=== PATIENT | female | born 1965 | race Caucasian/White ===

== ENCOUNTER 2017-04-23 16:34 | Emergency (ER) | payer OTHER ==
[~2017-04-23] VITALS: Ht 154.9 cm; Wt 71.7 kg
[~2017-04-23 16:34] MED LIST: LISNOPRIL; SERT20CO7
[2017-04-23] MEDS ORDERED: cloNIDine HCL 0.1 MG TAB PO ONE (17:15)
[2017-04-23 17:50] LABS: Basophils # (auto) 0.1 uL; Basophils % (auto) 1.4 % (0.0-2.0); Eosinophils # (auto) 0.2 uL; Eosinophils % (auto) 2.1 % (0.0-7.0); Hematocrit 40.7 % (36.0-46.0); Hemoglobin 13.6 g/dL (12.2-16.2); Lymphocytes # (auto) 3.9 uL; Lymphocytes % (auto) 41.4 % (10.0-50.0); Mean Corpuscular Hemoglobin 28.8 pg (28.0-32.0); Mean Corpuscular Hgb Conc. 33.4 g/dL (32.0-36.0); Mean Corpuscular Volume 86.4 fL (80.0-100.0); Monocytes # (auto) 0.6 uL; Monocytes % (auto) 6.5 % (0.0-12.0); Neutrophils # (auto) 4.6 uL; Neutrophils % (auto) 48.6 % (37.0-80.0); Nucleated Red Blood Cells % 0.3 %; Platelet Count (auto) 268 10^3/uL (140-450); Red Blood Cells 4.71 10^6/uL (4.0-5.20); Red Cell Distribution Width 14.3 % (11.8-14.3); White Blood Cell 9.4 10^3/uL (4.4-10.8)
[2017-04-23 17:57] LABS: Alanine Aminotransferase 69 U/L (13-56); Albumin 3.8 g/dL (3.4-5.0); Anion Gap 8 (5-15); Blood Urea Nitrogen 10 mg/dL (7-18); Calcium 8.9 mg/dL (8.5-10.1); Carbon Dioxide 26 mmol/L (21-32); Chloride 105 mmol/L (98-107); Glucose 98 mg/dL (74-106); Potassium 3.6 mmol/L (3.5-5.1); Sodium 139 mmol/L (136-145)
[2017-04-23 17:59] LABS: BUN/Creatinine Ratio 13.3; GFR African American 106 mL/min; GFR Non-African American 87 mL/min; Total Protein 7.9 g/dL (6.4-8.2)
[2017-04-23 18:09] LABS: Alkaline Phosphatase 114 U/L (45-117); Aspartate Aminotransferase 46 U/L (15-37); Bilirubin, Total 0.6 mg/dL (0.2-1.0)
[2017-04-23 22:44] VITALS: BP 143/91
[2017-04-23] MEDS ORDERED: ALPRAZolam 0.5 MG TAB PO ONE (23:00)
== END 2017-04-24 00:10 | disposition home or self-care (01) ==
LOC: ER 16:44
DX: I10 Essential (primary) hypertension (principal); E03.9 Hypothyroidism, unspecified; F41.9 Anxiety disorder, unspecified; Z88.6 Allergy status to analgesic agent; Z88.8 Allergy status to other drugs, medicaments and biological substances
CPT/HCPCS: 36415; 71046; 80053; 84484; 85025; 93005

== ENCOUNTER 2019-01-06 09:59 | Emergency (ER) | payer OTHER ==
[~2019-01-06] VITALS: Ht 154.9 cm; Wt 74.8 kg
[2019-01-06 11:00] VITALS: BP 149/90
[2019-01-06] MEDS ORDERED: KETOROLAC TROMETH 60MG/2ML VIAL IM ONE (11:30)
== END 2019-01-06 12:38 | disposition home or self-care (01) ==
LOC: ER 10:10
DX: S16.1XXA Strain of muscle, fascia and tendon at neck level, initial encounter (principal); S20.212A Contusion of left front wall of thorax, initial encounter; S30.1XXA Contusion of abdominal wall, initial encounter; I10 Essential (primary) hypertension; Z88.6 Allergy status to analgesic agent; Z90.89 Acquired absence of other organs; V43.62XA Car passenger injured in collision with other type car in traffic accident, initial encounter; Y93.89 Activity, other specified; Y99.8 Other external cause status; Y92.410 Unspecified street and highway as the place of occurrence of the external cause
CPT/HCPCS: 71046; 72040; 96372; 99283; J1885

== ENCOUNTER 2019-01-13 20:40 | Emergency (ER) | payer OTHER ==
[~2019-01-13] VITALS: Ht 154.9 cm; Wt 73.9 kg
[2019-01-13] MEDS ORDERED: cloNIDine HCL 0.1 MG TAB PO ONE (21:15)
[2019-01-13] MEDS ORDERED: HYDROcodone-ACET 5/325MG TAB PO ONE (21:15)
[2019-01-13 22:51] VITALS: BP 168/100
[2019-01-13] MEDS ORDERED: KETOROLAC TROMETH 60MG/2ML VIAL IM ONE (23:15)
[2019-01-13] MEDS ORDERED: DexAMETHasone SOD PHOS 10MG/1ML VIAL INJ IM ONE (23:15)
[2019-01-13] MEDS ORDERED: cefTRIAXone SOD 1,000 MG VL IM ONE (23:15)
== END 2019-01-14 00:09 | disposition home or self-care (01) ==
LOC: ER 20:43
DX: R51 Headache (principal); J06.9 Acute upper respiratory infection, unspecified; H72.91 Unspecified perforation of tympanic membrane, right ear; I10 Essential (primary) hypertension; Z90.89 Acquired absence of other organs; Z88.6 Allergy status to analgesic agent
CPT/HCPCS: 82962; 96372; 99283; J0696; J1100; J1885

== ENCOUNTER 2019-08-06 15:57 | Inpatient (IN) | payer OTHER ==
[~2019-08-06] VITALS: Ht 154.9 cm; Wt 75.1 kg
[2019-08-06] MEDS ORDERED: SODIUM CHLORIDE 0.9% 1,000 ML IV ONE (16:32)
[2019-08-06] MEDS ORDERED: SODIUM CHLORIDE 0.9% 500 ML IV ONE (16:32)
[2019-08-06 17:42] LABS: Basophils # (auto) 0 10 ^3/uL (0-0.2); Basophils % (auto) 0.4 % (0.0-2.0); Eosinophils # (auto) 0 10 ^3/uL (0-0.8); Eosinophils % (auto) 0.1 % (0.0-7.0); Hematocrit 40.9 % (36.0-46.0); Hemoglobin 14.1 g/dL (12.2-16.2); Lymphocytes % (auto) 16.2 % (10.0-50.0); Mean Corpuscular Hemoglobin 28.6 pg (28.0-32.0); Mean Corpuscular Hgb Conc. 34.3 g/dL (32.0-36.0); Mean Corpuscular Volume 83.2 fL (80.0-100.0); Monocytes # (auto) 0.5 10 ^3/uL (0-1.3); Monocytes % (auto) 8.8 % (0.0-12.0); Neutrophils # (auto) 4.4 10 ^3/uL (1.6-8.6); Neutrophils % (auto) 74.5 % (37.0-80.0); Nucleated Red Blood Cells % 0.1 %; Platelet Count (auto) 185 10^3/uL (140-450); Red Blood Cells 4.92 10^6/uL (4.0-5.20); Red Cell Distribution Width 13.6 % (11.8-14.3); White Blood Cell 5.9 10^3/uL (4.4-10.8)
[2019-08-06] MEDS ORDERED: IBUPROFEN 600 MG TAB PO ONE (17:45)
[2019-08-06 18:01] LABS: Albumin 3.6 g/dL (3.4-5.0); Calcium 8.6 mg/dL (8.5-10.1); Magnesium 2.2 mg/dL (1.6-2.6); Potassium 3.7 mmol/L (3.5-5.1)
[2019-08-06 18:05] LABS: Bilirubin, Total 0.6 mg/dL (0.2-1.0); Total Protein 8.3 g/dL (6.4-8.2)
[2019-08-06] MEDS ORDERED: AZITHROMYCIN 500MG/ 250ML 250 ML IV ONE (20:15)
[2019-08-06] MEDS ORDERED: cefTRIAXone 1GM/50ML D5W 50 ML IV ONE (20:15)
[2019-08-06 20:56] LABS: Partial Thromboplastin Time 31.9 sec (23.64-32.05)
[2019-08-06] MEDS ORDERED: SODIUM CHLORIDE 0.9% 1,000 ML IV SCH (23:35)
[2019-08-06 23:44] LABS: Urine Bacteria FEW /hpf (None Seen); Urine Blood Negative /uL (Negative); Urine Hyaline Cast MOD /lpf (0 - 2); Urine Mucus FEW (None Seen); Urine Specific Gravity 1.011 (1.001-1.035); Urine WBC 2 /hpf (0 - 5)
[2019-08-06] MEDS ORDERED: LORazepam 0.5 MG TAB PO PRN (23:45)
[2019-08-06] MEDS ORDERED: DEXTROSE (50%) 50ML SYRG IV PRN (23:45)
[2019-08-06] MEDS ORDERED: DOCUSATE SOD 100 MG CAP PO PRN (23:45)
[2019-08-06] MEDS ORDERED: TEMAZEPAM 15 MG CAP PO PRN (23:45)
[2019-08-07] MEDS: ACCU-CHEK COMFORT CURVE STRIP VI SCH ×7 (00:51→23:52)
[2019-08-07] MEDS: InsuLIN REG 1unit/0.01ml Soln (100units/ml) SC SCH ×7 (00:51→23:52)
[2019-08-07 01:38] VITALS: BP 121/76
[2019-08-07] MEDS ORDERED: AMLO5TAB15 PO (02:08)
[2019-08-07] MEDS ORDERED: LISI-646 PO (02:08)
[2019-08-07] MEDS ORDERED: METO25TA5 PO (02:08)
[2019-08-07] MEDS ORDERED: METF-370 PO (02:08)
[2019-08-07] MEDS ORDERED: TRAZ50TA2 PO (02:09)
[2019-08-07] MEDS: ACETAMINOPHEN 500 MG TAB PO PRN (03:48)
[2019-08-07 03:49] VITALS: BP 138/80
[2019-08-07 05:58] LABS: Basophils # (auto) 0 10 ^3/uL (0-0.2); Basophils % (auto) 0.4 % (0.0-2.0); Eosinophils # (auto) 0 10 ^3/uL (0-0.8); Eosinophils % (auto) 0.4 % (0.0-7.0); Hemoglobin 12.9 g/dL (12.2-16.2); Lymphocytes # (auto) 1.1 10 ^3/uL (0.4-5.4); Lymphocytes % (auto) 29.5 % (10.0-50.0); Mean Corpuscular Hemoglobin 28.7 pg (28.0-32.0); Mean Corpuscular Hgb Conc. 34.7 g/dL (32.0-36.0); Mean Corpuscular Volume 82.8 fL (80.0-100.0); Monocytes # (auto) 0.4 10 ^3/uL (0-1.3); Monocytes % (auto) 9.9 % (0.0-12.0); Neutrophils # (auto) 2.3 10 ^3/uL (1.6-8.6); Neutrophils % (auto) 59.8 % (37.0-80.0); Nucleated Red Blood Cells % 0.1 %; Platelet Count (auto) 173 10^3/uL (140-450); Red Blood Cells 4.48 10^6/uL (4.0-5.20); Red Cell Distribution Width 13.5 % (11.8-14.3); White Blood Cell 3.8 10^3/uL (4.4-10.8)
[2019-08-07] MEDS ORDERED: ALBUTEROL SULF HFA 90MCG INH 200DOSE IN SCH (06:00)
[2019-08-07 06:21] VITALS: BP 130/80
[2019-08-07 07:40] LABS: Albumin 3.1 g/dL (3.4-5.0); Calcium 8.1 mg/dL (8.5-10.1); Magnesium 2.3 mg/dL (1.6-2.6); Potassium 3.2 mmol/L (3.5-5.1)
[2019-08-07 07:44] LABS: BUN/Creatinine Ratio 22.6; Bilirubin, Total 0.3 mg/dL (0.2-1.0); Total Protein 7.3 g/dL (6.4-8.2)
[2019-08-07 08:00] VITALS: BP 131/84
[2019-08-07] MEDS: ZINC SULFATE 220mg CAP or TAB PO SCH (09:35)
[2019-08-07] MEDS: ASCORBIC ACID 1,000 MG TAB PO SCH (09:40)
[2019-08-07] MEDS: ENOXAPARIN SOD 40 MG/0.4 ML SYRINGE SC SCH (09:42)
[2019-08-07] MEDS: CHOLECALCIFEROL (VITD3) 1,000IU=25mCg TAB PO SCH (09:42)
[2019-08-07] MEDS: MORPHINE SULF INJ 2 MG/ML SYRINGE 1ML IV PRN ×2 (14:22→20:42)
[2019-08-07 16:30] VITALS: BP 105/63
[2019-08-07 20:00] VITALS: BP 112/76
[2019-08-07] MEDS: ONDANSETRON HCL 4 MG/2 ML VIAL IV PRN (20:43)
[2019-08-07] MEDS ORDERED: POTASSIUM CHLORIDE 20 MEQ, LIDOCAINE 1% (LOCAL ANESTH.) 2 ML in SODIUM CHL 0.9% 100 ML IV ONE (20:45)
[2019-08-07] MEDS ORDERED: AZITHROMYCIN 500MG/ 250ML 250 ML IV SCH (21:00)
[2019-08-07] MEDS ORDERED: DOXYCYCLINE 100MG/250ML 250 ML IV SCH (21:00)
[2019-08-07] MEDS ORDERED: POTASSIUM CHL 20MEQ/100ML 100 ML IV ONE (21:45)
[2019-08-07] MEDS: SOD CHL 0.9%/ KCL 40MEQ 1,000 ML IV SCH (22:21)
[2019-08-07] MEDS: METOPROLOL TARTRATE 25 MG TAB PO SCH (22:22)
[2019-08-07] MEDS: DOXYCYCLINE 100 MG TAB/CAP PO SCH (22:23)
[2019-08-07] MEDS: LISINOPRIL 20 MG TAB PO SCH (22:23)
[2019-08-08] MEDS: MORPHINE SULF INJ 2 MG/ML SYRINGE 1ML IV PRN ×5 (00:33→20:19)
[2019-08-08] MEDS: ONDANSETRON HCL 4 MG/2 ML VIAL IV PRN ×3 (00:33→20:20)
[2019-08-08] MEDS: ACCU-CHEK COMFORT CURVE STRIP VI SCH ×4 (05:04→21:01)
[2019-08-08] MEDS: InsuLIN REG 1unit/0.01ml Soln (100units/ml) SC SCH ×2 (05:04→07:47)
[2019-08-08] MEDS: SOD CHL 0.9%/ KCL 40MEQ 1,000 ML IV SCH (05:04)
[2019-08-08] MEDS: FUROSEMIDE 20 MG/2 ML VIAL IV SCH ×2 (05:05→18:40)
[2019-08-08 05:18] VITALS: BP 114/75
[2019-08-08 08:30] VITALS: BP 108/53
[2019-08-08] MEDS: ZINC SULFATE 220mg CAP or TAB PO SCH (09:49)
[2019-08-08] MEDS: DOXYCYCLINE 100 MG TAB/CAP PO SCH ×2 (09:50→21:01)
[2019-08-08] MEDS: ASCORBIC ACID 1,000 MG TAB PO SCH (09:50)
[2019-08-08] MEDS: METOPROLOL TARTRATE 25 MG TAB PO SCH ×2 (09:51→21:01)
[2019-08-08] MEDS: CHOLECALCIFEROL (VITD3) 1,000IU=25mCg TAB PO SCH (09:51)
[2019-08-08] MEDS: ENOXAPARIN SOD 40 MG/0.4 ML SYRINGE SC SCH (09:51)
[2019-08-08] MEDS: amLODIPine BESYLATE 5 MG TAB PO SCH (09:52)
[2019-08-08] MEDS: LISINOPRIL 20 MG TAB PO SCH (09:54)
[2019-08-08 10:29] LABS: Basophils # (auto) 0.1 10 ^3/uL (0-0.2); Basophils % (auto) 1.3 % (0.0-2.0); Eosinophils # (auto) 0 10 ^3/uL (0-0.8); Eosinophils % (auto) 0.1 % (0.0-7.0); Hematocrit 38.9 % (36.0-46.0); Hemoglobin 12.6 g/dL (12.2-16.2); Lymphocytes # (auto) 1.2 10 ^3/uL (0.4-5.4); Lymphocytes % (auto) 24.3 % (10.0-50.0); Mean Corpuscular Hemoglobin 28.2 pg (28.0-32.0); Mean Corpuscular Hgb Conc. 32.4 g/dL (32.0-36.0); Mean Corpuscular Volume 86.9 fL (80.0-100.0); Monocytes # (auto) 0.3 10 ^3/uL (0-1.3); Monocytes % (auto) 6.3 % (0.0-12.0); Neutrophils # (auto) 3.3 10 ^3/uL (1.6-8.6); Nucleated Red Blood Cells % 0.1 %; Platelet Count (auto) 72 10^3/uL (140-450); Red Blood Cells 4.48 10^6/uL (4.0-5.20); Red Cell Distribution Width 14.5 % (11.8-14.3); White Blood Cell 4.8 10^3/uL (4.4-10.8)
[2019-08-08 10:43] LABS: INR 1.47 (0.9-1.15); Partial Thromboplastin Time 38.6 sec (23.64-32.05)
[2019-08-08 10:48] LABS: Anion Gap 7 (5-15); Blood Urea Nitrogen 13 mg/dL (7-18); Carbon Dioxide 22 mmol/L (21-32); Chloride 107 mmol/L (98-107); Glucose 139 mg/dL (74-106); Magnesium 2.2 mg/dL (1.6-2.6); Potassium 3.7 mmol/L (3.5-5.1); Sodium 136 mmol/L (136-145)
[2019-08-08 10:56] LABS: Alanine Aminotransferase 40 U/L (13-56); Alkaline Phosphatase 125 U/L (45-117); Aspartate Aminotransferase 41 U/L (15-37); BUN/Creatinine Ratio 13.5; Bilirubin, Total 0.5 mg/dL (0.2-1.0); CRP High Sensitivity 9.16 mg/dL (< 0.3); GFR African American 78 mL/min; GFR Non-African American 65 mL/min; Lactate Dehydrogenase 273 U/L (84-246); Total Protein 7.3 g/dL (6.4-8.2)
[2019-08-08] MEDS ORDERED: cefTRIAXone 1GM/50ML D5W 50 ML IV ONE (14:15)
[2019-08-08] MEDS ORDERED: DOXYCYCLINE 100 MG TAB/CAP PO ONE (14:15)
[2019-08-09] MEDS: ONDANSETRON HCL 4 MG/2 ML VIAL IV PRN ×4 (01:49→22:45)
[2019-08-09] MEDS: MORPHINE SULF INJ 2 MG/ML SYRINGE 1ML IV PRN ×5 (01:49→22:45)
[2019-08-09] MEDS: FUROSEMIDE 20 MG/2 ML VIAL IV SCH ×2 (05:03→18:48)
[2019-08-09] MEDS: cefTRIAXone 1GM/50ML D5W 50 ML IV SCH (08:34)
[2019-08-09] MEDS: ZINC SULFATE 220mg CAP or TAB PO SCH (09:10)
[2019-08-09] MEDS: METOPROLOL TARTRATE 25 MG TAB PO SCH ×2 (09:11→21:38)
[2019-08-09] MEDS: DOXYCYCLINE 100 MG TAB/CAP PO SCH ×2 (09:12→21:38)
[2019-08-09] MEDS: CHOLECALCIFEROL (VITD3) 1,000IU=25mCg TAB PO SCH (09:12)
[2019-08-09] MEDS: ASCORBIC ACID 1,000 MG TAB PO SCH (09:12)
[2019-08-09] MEDS: ENOXAPARIN SOD 40 MG/0.4 ML SYRINGE SC SCH (09:13)
[2019-08-09] MEDS: ACCU-CHEK COMFORT CURVE STRIP VI SCH ×2 (09:46→21:38)
[2019-08-09] MEDS: amLODIPine BESYLATE 5 MG TAB PO SCH (09:46)
[2019-08-09 19:39] VITALS: BP 131/77
[2019-08-09] MEDS: ACETAMINOPHEN 500 MG TAB PO PRN (21:44)
[2019-08-10 00:30] VITALS: BP 117/73
[2019-08-10] MEDS: MORPHINE SULF INJ 2 MG/ML SYRINGE 1ML IV PRN ×5 (04:18→22:36)
[2019-08-10 05:14] VITALS: BP 117/77
[2019-08-10] MEDS: FUROSEMIDE 20 MG/2 ML VIAL IV SCH (05:17)
[2019-08-10 06:00] LABS: Basophils # (auto) 0 10 ^3/uL (0-0.2); Basophils % (auto) 0.4 % (0.0-2.0); Eosinophils # (auto) 0 10 ^3/uL (0-0.8); Eosinophils % (auto) 0.3 % (0.0-7.0); Hematocrit 35.8 % (36.0-46.0); Hemoglobin 12.4 g/dL (12.2-16.2); Lymphocytes # (auto) 1.2 10 ^3/uL (0.4-5.4); Lymphocytes % (auto) 17.7 % (10.0-50.0); Mean Corpuscular Hemoglobin 28.7 pg (28.0-32.0); Mean Corpuscular Hgb Conc. 34.7 g/dL (32.0-36.0); Mean Corpuscular Volume 82.8 fL (80.0-100.0); Monocytes # (auto) 0.7 10 ^3/uL (0-1.3); Monocytes % (auto) 10.1 % (0.0-12.0); Neutrophils # (auto) 4.7 10 ^3/uL (1.6-8.6); Neutrophils % (auto) 71.5 % (37.0-80.0); Nucleated Red Blood Cells % 0.1 %; Platelet Count (auto) 246 10^3/uL (140-450); Red Blood Cells 4.32 10^6/uL (4.0-5.20); Red Cell Distribution Width 13.2 % (11.8-14.3); White Blood Cell 6.6 10^3/uL (4.4-10.8)
[2019-08-10 06:44] LABS: Potassium 3.3 mmol/L (3.5-5.1)
[2019-08-10 06:55] LABS: Albumin 2.9 g/dL (3.4-5.0); BUN/Creatinine Ratio 13.8; Bilirubin, Total 0.8 mg/dL (0.2-1.0); Calcium 8.4 mg/dL (8.5-10.1); Total Protein 7.5 g/dL (6.4-8.2)
[2019-08-10] MEDS: cefTRIAXone 1GM/50ML D5W 50 ML IV SCH (09:25)
[2019-08-10] MEDS: ZINC SULFATE 220mg CAP or TAB PO SCH (09:25)
[2019-08-10] MEDS: ENOXAPARIN SOD 40 MG/0.4 ML SYRINGE SC SCH (09:26)
[2019-08-10] MEDS: CHOLECALCIFEROL (VITD3) 1,000IU=25mCg TAB PO SCH (09:26)
[2019-08-10] MEDS: ASCORBIC ACID 1,000 MG TAB PO SCH (09:26)
[2019-08-10] MEDS: DOXYCYCLINE 100 MG TAB/CAP PO SCH ×2 (09:26→22:32)
[2019-08-10] MEDS: ACCU-CHEK COMFORT CURVE STRIP VI SCH ×2 (09:27→23:03)
[2019-08-10] MEDS ORDERED: POTASSIUM EFFERVESENT TAB 25 MEQ PO ONE (09:45)
[2019-08-10] MEDS: amLODIPine BESYLATE 5 MG TAB PO SCH (10:00)
[2019-08-10] MEDS: METOPROLOL TARTRATE 25 MG TAB PO SCH ×2 (10:00→22:36)
[2019-08-10] MEDS ORDERED: hydrOXYchloroQUINE SULFATE 200 MG TAB PO ONE (12:30)
[2019-08-10 16:30] VITALS: BP 124/82
[2019-08-10 20:04] VITALS: BP 126/83
[2019-08-10] MEDS ORDERED: hydrOXYchloroQUINE SULFATE 200 MG TAB PO SCH (22:00)
[2019-08-11] VITALS: BP 123/80
[2019-08-11] MEDS: MORPHINE SULF INJ 2 MG/ML SYRINGE 1ML IV PRN ×5 (03:12→23:11)
[2019-08-11] MEDS: ONDANSETRON HCL 4 MG/2 ML VIAL IV PRN ×5 (03:12→23:11)
[2019-08-11] MEDS ORDERED: CALCIUM CARB 500 MG CHEW TAB PO PRN (05:45)
[2019-08-11 05:51] VITALS: BP 122/81
[2019-08-11 08:00] VITALS: BP 128/78
[2019-08-11] MEDS: cefTRIAXone 1GM/50ML D5W 50 ML IV SCH (09:38)
[2019-08-11] MEDS: ZINC SULFATE 220mg CAP or TAB PO SCH (09:39)
[2019-08-11] MEDS: amLODIPine BESYLATE 5 MG TAB PO SCH (09:39)
[2019-08-11] MEDS: METOPROLOL TARTRATE 25 MG TAB PO SCH ×2 (09:39→23:11)
[2019-08-11] MEDS: DOXYCYCLINE 100 MG TAB/CAP PO SCH ×2 (09:39→23:10)
[2019-08-11] MEDS: ASCORBIC ACID 1,000 MG TAB PO SCH (09:40)
[2019-08-11] MEDS: CHOLECALCIFEROL (VITD3) 1,000IU=25mCg TAB PO SCH (09:40)
[2019-08-11] MEDS: ACCU-CHEK COMFORT CURVE STRIP VI SCH ×2 (09:40→22:00)
[2019-08-11] MEDS: ENOXAPARIN SOD 40 MG/0.4 ML SYRINGE SC SCH (09:40)
[2019-08-11 12:00] VITALS: BP 117/78
[2019-08-11 16:30] VITALS: BP 127/83
[2019-08-11 19:58] VITALS: BP 123/75
[2019-08-12 00:11] VITALS: BP 131/84
[2019-08-12 04:03] VITALS: BP 140/92
[2019-08-12] MEDS: MORPHINE SULF INJ 2 MG/ML SYRINGE 1ML IV PRN ×2 (06:04→10:51)
[2019-08-12] MEDS: ONDANSETRON HCL 4 MG/2 ML VIAL IV PRN ×2 (06:04→10:49)
[2019-08-12 08:00] VITALS: BP 140/89
[2019-08-12] MEDS: cefTRIAXone 1GM/50ML D5W 50 ML IV SCH (09:50)
[2019-08-12] MEDS: ACCU-CHEK COMFORT CURVE STRIP VI SCH (09:50)
[2019-08-12] MEDS: ENOXAPARIN SOD 40 MG/0.4 ML SYRINGE SC SCH (10:00)
[2019-08-12] MEDS: CHOLECALCIFEROL (VITD3) 1,000IU=25mCg TAB PO SCH (10:24)
[2019-08-12] MEDS: ASCORBIC ACID 1,000 MG TAB PO SCH (10:52)
[2019-08-12] MEDS: DOXYCYCLINE 100 MG TAB/CAP PO SCH (10:52)
[2019-08-12] MEDS: ZINC SULFATE 220mg CAP or TAB PO SCH (10:52)
[2019-08-12] MEDS: METOPROLOL TARTRATE 25 MG TAB PO SCH (10:53)
[2019-08-12] MEDS: amLODIPine BESYLATE 5 MG TAB PO SCH (10:55)
[2019-08-12 12:11] VITALS: BP 121/83
== END 2019-08-12 13:40 | disposition home or self-care (01) | DRG 871 ==
LOC: ER 15:57 → EAST 15:58 → UNDOADMIN 15:58 → OVERFLOW 15:58
PROVIDERS: ADMIT Hospitalist; ATTEND Internal Medicine Nephrology
DX: A41.9 Sepsis, unspecified organism (principal); U07.1 COVID-19; N17.9 Acute kidney failure, unspecified; I10 Essential (primary) hypertension; E11.9 Type 2 diabetes mellitus without complications; E03.9 Hypothyroidism, unspecified; E66.9 Obesity, unspecified; E87.6 Hypokalemia; M54.5 Low back pain; G89.29 Other chronic pain; B34.9 Viral infection, unspecified; F32.9 Major depressive disorder, single episode, unspecified; Z90.710 Acquired absence of both cervix and uterus; Z79.899 Other long term (current) drug therapy; Z88.5 Allergy status to narcotic agent; Z68.31 Body mass index [BMI] 31.0-31.9, adult
CPT/HCPCS: 36415; 71045; 80053; 81001; 82728; 82962; 83615; 83735; 83880; 84100; 84443; 84484; 85025; 85379; 85610; 85730; 86141; 87040; 87070; 87086; 87804; 87880; 93005; 96361; 96365; 96368; G0378; J0696; J1815; J2001; J2405; J3480

== ENCOUNTER 2019-09-15 11:32 | Emergency (ER) | payer OTHER ==
[~2019-09-15] VITALS: Ht 154.9 cm; Wt 72.6 kg
[~2019-09-15 11:32] MED LIST changes: +AMLO5TAB15 PO; +LISI-646 PO; -LISNOPRIL; +METF-370 PO; +METO25TA5 PO; -SERT20CO7
[2019-09-15 12:46] VITALS: BP 129/89
[2019-09-15 15:29] LABS: Albumin 3.7 g/dL (3.4-5.0); Magnesium 2.5 mg/dL (1.6-2.6); Potassium 3.7 mmol/L (3.5-5.1)
[2019-09-15 15:33] LABS: BUN/Creatinine Ratio 20.3; Basophils # (auto) 0.1 10 ^3/uL (0-0.2); Basophils % (auto) 1.1 % (0.0-2.0); Bilirubin, Total 0.5 mg/dL (0.2-1.0); Eosinophils # (auto) 0.1 10 ^3/uL (0-0.8); Eosinophils % (auto) 0.9 % (0.0-7.0); Hematocrit 40.1 % (36.0-46.0); Hemoglobin 13.6 g/dL (12.2-16.2); Lymphocytes # (auto) 2.6 10 ^3/uL (0.4-5.4); Lymphocytes % (auto) 29.3 % (10.0-50.0); Mean Corpuscular Hemoglobin 28.7 pg (28.0-32.0); Mean Corpuscular Hgb Conc. 33.8 g/dL (32.0-36.0); Mean Corpuscular Volume 84.9 fL (80.0-100.0); Monocytes # (auto) 0.5 10 ^3/uL (0-1.3); Monocytes % (auto) 5.5 % (0.0-12.0); Neutrophils # (auto) 5.6 10 ^3/uL (1.6-8.6); Neutrophils % (auto) 63.2 % (37.0-80.0); Nucleated Red Blood Cells % 0.1 %; Platelet Count (auto) 305 10^3/uL (140-450); Red Blood Cells 4.73 10^6/uL (4.0-5.20); Red Cell Distribution Width 15.5 % (11.8-14.3); Total Protein 7.8 g/dL (6.4-8.2); White Blood Cell 8.9 10^3/uL (4.4-10.8)
[2019-09-15] MEDS ORDERED: SODIUM CHLORIDE 0.9% 1,000 ML IVB ONE (15:59)
[2019-09-15] MEDS ORDERED: DOXYCYCLINE 100 MG TAB/CAP PO ONE (16:00)
[2019-09-15 16:47] LABS: INR 0.95 (0.9-1.15); Partial Thromboplastin Time 29.4 sec (23.64-32.05)
== END 2019-09-15 16:59 | disposition left against medical advice (07) ==
LOC: ER 11:32
DX: J12.89 Other viral pneumonia (principal); E11.9 Type 2 diabetes mellitus without complications; I10 Essential (primary) hypertension; Z90.710 Acquired absence of both cervix and uterus; Z90.89 Acquired absence of other organs; Z53.29 Procedure and treatment not carried out because of patient's decision for other reasons; Z20.828 Contact with and (suspected) exposure to other viral communicable diseases
CPT/HCPCS: 36415; 71045; 80053; 83735; 85025; 85610; 85730; 87070; 87804; 87880; 99284; C9803; U0003

== ENCOUNTER 2021-04-26 02:24 | Emergency (ER) | payer OTHER ==
[~2021-04-26] VITALS: Ht 154.9 cm; Wt 71.2 kg
[~2021-04-26 02:24] MED LIST changes: +AMLO-489 PO; -AMLO5TAB15 PO; -LISI-646 PO; +LISI20TA28 PO
[2021-04-26] MEDS ORDERED: MORPHINE SULFATE 4 MG/ML SYR/VIAL IV ONE ×2 (02:45→03:15)
[2021-04-26 03:03] LABS: Hemoglobin 10.8 g/dL (12.2-16.2)
[2021-04-26 03:06] LABS: Basophils # (auto) 0.1 10 ^3/uL (0-0.2); Basophils % (auto) 0.5 % (0.0-2.0); Eosinophils # (auto) 0 10 ^3/uL (0-0.8); Lymphocytes # (auto) 2.7 10 ^3/uL (0.4-5.4); Monocytes # (auto) 0.4 10 ^3/uL (0-1.3); Neutrophils # (auto) 10.6 10 ^3/uL (1.6-8.6); Nucleated Red Blood Cells % 0.1 %; Red Cell Distribution Width 14.3 % (11.8-14.3); White Blood Cell 13.8 10^3/uL (4.4-10.8)
[2021-04-26 03:08] LABS: Eosinophils % (auto) 0.1 % (0.0-7.0); Hematocrit 32.7 % (36.0-46.0); Lymphocytes % (auto) 19.4 % (10.0-50.0); Mean Corpuscular Hemoglobin 27.8 pg (28.0-32.0); Mean Corpuscular Hgb Conc. 33.1 g/dL (32.0-36.0); Red Blood Cells 3.89 10^6/uL (4.0-5.20)
[2021-04-26 03:14] LABS: Partial Thromboplastin Time 23.2 sec (23.6-33.0)
[2021-04-26 03:19] LABS: Albumin 3.7 g/dL (3.4-5.0); BUN/Creatinine Ratio 17.2; Calcium 9.6 mg/dL (8.5-10.1); Potassium 3.2 mmol/L (3.5-5.1)
[2021-04-26 03:22] LABS: Bilirubin, Total 0.7 mg/dL (0.2-1.0)
[2021-04-26] MEDS ORDERED: HYDROmorphone HCL 2 MG/ML VL IV ONE (03:30)
[2021-04-26 04:23] LABS: Urine Bacteria NONE SEEN /hpf (None Seen); Urine Blood Negative /uL (Negative); Urine Mucus FEW (None Seen); Urine Specific Gravity 1.012 (1.001-1.035); Urine WBC 1 /hpf (0 - 5)
[2021-04-26] MEDS ORDERED: POTASSIUM EFFERVESENT TAB 25 MEQ PO ONE (06:45)
[2021-04-26] MEDS ORDERED: LACTATED RINGER'S 1,000 ML IV ONE (06:45)
[2021-04-26 07:09] VITALS: BP 148/87
== END 2021-04-26 09:29 | disposition home or self-care (01) ==
LOC: ER 02:24
DX: R10.30 Lower abdominal pain, unspecified (principal); R11.2 Nausea with vomiting, unspecified; E11.9 Type 2 diabetes mellitus without complications; I10 Essential (primary) hypertension; Z90.710 Acquired absence of both cervix and uterus; Z88.6 Allergy status to analgesic agent
CPT/HCPCS: 36415; 36600; 74176; 76856; 80053; 81001; 82805; 83690; 84702; 85025; 85610; 85730; 96361; 96374; 96375; 99284; J1170; J2270

== ENCOUNTER 2023-10-24 04:48 | Emergency (ER) | payer OTHER ==
[~2023-10-24] VITALS: Ht 154.9 cm; Wt 77.7 kg
[~2023-10-24 04:48] MED LIST changes: -AMLO-489 PO; +AMLO1TAB22 PO; -LISI20TA28 PO; +LISI20TA56 PO
[2023-10-24 05:09] LABS: Urine Bacteria None Seen /hpf (None Seen)
[2023-10-24 05:16] LABS: Urine Blood 1+ /uL (Negative); Urine Clarity Clear (Clear); Urine Color Yellow (Yellow); Urine Mucus FEW (None Seen); Urine Protein, UAD TRACE (Negative); Urine Specific Gravity 1.025 (1.001-1.035); Urine Urobilinogen Normal (Negative); Urine WBC 6 /hpf (0 - 5)
[2023-10-24 08:54] LABS: Basophils # (auto) 0.1 10 ^3/uL (0-0.2); Basophils % (auto) 0.7 % (0.0-2.0); Eosinophils # (auto) 0 10 ^3/uL (0-0.8); Eosinophils % (auto) 0.2 % (0.0-7.0); Hematocrit 36.2 % (36.0-46.0); Hemoglobin 12.5 g/dL (12.2-16.2); Lymphocytes # (auto) 1.7 10 ^3/uL (0.4-5.4); Lymphocytes % (auto) 15.1 % (10.0-50.0); Mean Corpuscular Hemoglobin 28.8 pg (28.0-32.0); Mean Corpuscular Hgb Conc. 34.4 g/dL (32.0-36.0); Mean Corpuscular Volume 83.6 fL (80.0-100.0); Monocytes # (auto) 0.4 10 ^3/uL (0-1.3); Monocytes % (auto) 3.2 % (0.0-12.0); Neutrophils # (auto) 8.9 10 ^3/uL (1.6-8.6); Neutrophils % (auto) 80.8 % (37.0-80.0); Red Blood Cells 4.33 10^6/uL (4.0-5.20); Red Cell Distribution Width 13.9 % (11.8-14.3)
[2023-10-24 09:15] LABS: Alanine Aminotransferase 34 U/L (7-40); Albumin 4.4 g/dL (3.2-4.8); Alkaline Phosphatase 113 U/L (46-116); Anion Gap 9 (5-15); Aspartate Aminotransferase 19 U/L (13-40); BUN/Creatinine Ratio 21.6 (10.0-20.0); Blood Urea Nitrogen 22 mg/dL (9-23); Calcium 9.3 mg/dL (8.7-10.4); Carbon Dioxide 26 mmol/L (20-30); Chloride 102 mmol/L (98-107); Glucose 291 mg/dL (74-106); Lipase 57 U/L (12-53); Magnesium 1.9 mg/dL (1.6-2.6); Potassium 3.1 mmol/L (3.5-5.1); Sodium 137 mmol/L (136-145)
[2023-10-24 09:16] LABS: Bilirubin, Total 0.5 mg/dL (0.2-1.0); Total Protein 7.5 g/dL (5.7-8.2)
[2023-10-24 09:30] VITALS: BP 113/66; PULSE 79; RESP 18; O2SAT 100
[2023-10-24] MEDS: METOCLOPRAMIDE HCL 5MG/ml INJ 2ml VIAL IV ONE (09:37)
[2023-10-24] MEDS: KETOROLAC TROMETH 30 MG/ML 1ML VIAL IV ONE (09:37)
[2023-10-24] MEDS: SODIUM CHLORIDE 0.9% 1,000 ML IVB ONE (09:38)
[2023-10-24] MEDS ORDERED: DICL50TA2 PO (10:12)
[2023-10-24] MEDS ORDERED: CYCL-839 PO (10:12)
[2023-10-24] MEDS: POTASSIUM EFFERVESENT TAB 25 MEQ PO ONE (10:30)
== END 2023-10-24 10:39 | disposition home or self-care (01) ==
LOC: ER 04:57
DX: E87.6 Hypokalemia (principal); E11.65 Type 2 diabetes mellitus with hyperglycemia; I10 Essential (primary) hypertension; Z90.710 Acquired absence of both cervix and uterus; Z88.6 Allergy status to analgesic agent
CPT/HCPCS: 36415; 74176; 80053; 81001; 83690; 83735; 85025; 96361; 96374; 96375; 99285; J1885; J2765; J7030